=== PATIENT | male | born 1970 | race Caucasian/White ===

== ENCOUNTER 2025-03-14 12:36 | Outpatient (CLI) | payer BC | END 2025-03-14 12:37 | disposition home or self-care (01) | LOC: CSHCT 12:36 | PROVIDERS: ATTEND Urology | DX: N28.89 Other specified disorders of kidney and ureter (principal); K42.9 Umbilical hernia without obstruction or gangrene; N18.32 Chronic kidney disease, stage 3b | CPT/HCPCS: 71260; 74178 ==

== ENCOUNTER 2025-03-25 08:32 | Outpatient (CLI) | payer BC | END 2025-03-25 08:33 | disposition home or self-care (01) | LOC: CSHMRI 08:32 | PROVIDERS: ATTEND Urology | DX: N28.89 Other specified disorders of kidney and ureter (principal); C64.1 Malignant neoplasm of right kidney, except renal pelvis; C79.89 Secondary malignant neoplasm of other specified sites | CPT/HCPCS: 74183 ==